=== PATIENT | female | born 1965 | race Hispanic/Latino ===

== ENCOUNTER 2018-09-17 23:13 | Observation (INO) | payer SELFPAY ==
--- NOTE | 2018-09-17 23:38 | RAD ---
SINGLE VIEW OF THE CHEST: 09/17/18 COMPARISON: 10/24/15 HISTORY: Chest pain and left arm pain. FINDINGS: Single view of the chest shows a normal sized cardiomediastinal silhouette. There is no evidence of c onsolidation, mass, or pleural effusion. The bones are unremarkable. IMPRESSION: No evidence of acute cardiopulmonary disease. POS: [facility]
[2018-09-17 23:41] LABS: #Basophils 0.1 thou/uL (0.0-0.2); #Eosinphils 0.1 thou/uL (0.0-0.7); #Lymphocytes 3.9 thou/uL (1.20-3.40); #Monocytes 0.6 thou/uL (0.11-0.59); %Basophils 1.5 % (0.0-1.0); %Eosinophils 1.5 % (0.0-10.0); %Lymphocytes 39.8 % (21.0-51.0); %Monocytes 6.1 % (0.0-10.0); Hemoglobin 17.3 g/dL (12.0-16.0); Mean Corpuscular HGB CONC 33.7 g/dL (32.0-36.0); Mean Corpuscular Hemoglobin 32.3 pg (27.0-31.0); Mean Corpuscular Volume 95.8 fL (78.0-98.0); Mean Platelet Volume 8.5 fL (7.4-10.4); Platelet Count 184 thou/uL (130-400); RBC Distribution Width 11.7 % (11.5-14.5); Red Blood Cell (RBC) Count 5.35 mill/uL (4.20-5.40); White Blood Cell (WBC) Count 9.8 thou/uL (4.8-10.8)
[2018-09-18 00:02] LABS: ALT (SGPT) 18 U/L (8-55); AST (SGOT) 16 U/L (5-34); Albumin 3.8 g/dL (3.5-5.0); Alkaline Phosphatase 101 U/L (40-150); Anion Gap 11 mmol/L (10-20); BUN (Urea Nitrogen) 15 mg/dL (9.8-20.1); Bilirubin, Total 0.5 mg/dL (0.2-1.2); CK (CPK) 34 U/L (29-168); Calc. Creatinine Clearance 0 mL/min (70-130); Calcium 9.5 mg/dL (7.8-10.44); Carbon Dioxide 29 mmol/L (22-29); Chloride 103 mmol/L (98-107); Estimated GFR-MDRD 71; Globulin 3.1 g/dL (2.4-3.5); Glucose 126 mg/dL (70-105); Lipase 22 U/L (8-78); Potassium 4.1 mmol/L (3.5-5.1); Protein, Total 6.9 g/dL (6.0-8.3); Sodium 139 mmol/L (136-145)
[2018-09-18] MEDS ORDERED: Morphine 4 MG/ML VIAL ONE (01:08)
[2018-09-18] MEDS ORDERED: Nitroglycerin 2% Ointment 1 INCH/1 GM Packet ONE (01:08)
--- NOTE | 2018-09-18 01:16 | PDOC.FPRHP ---
- History of Present Illness Chief Complaint: Chest pain History of Present Illness: Mrs. Rivera presents to the ED with a one week history of chest pain She reports she has had these kind of episodes in the past. 2 weeks ago she was treated with abx for bronchitis. and this past week she has had a stabbing sensation in her left upper chest that is worse with deep inspiration. She denies SOB or PISANO, palpitations, headache, swelling or visual changes. She reports she becomes very fatigued and her legs become painful when she walks long distances. The last time she was admitted for this it was thought to be unlikely cardiac in nature. she was given medications and recommendations on follow up but did not follow through with any of these. ED Course: CBC, CMP, trop, DDimer, lipase, CXR, EKG 1 inch nitro, 4 mg morphine, ASA - Allergies/Adverse Reactions Allergies Allergy/AdvReac Type Severity Reaction Status Date / Time No Known Allergies Allergy Verified 10/24/15 20:52 - Home Medications Medication Instructions Recorded Confirmed Type Amlodipine [Norvasc] 2.5 mg PO DAILY #0 tab 10/25/15 Rx Aspirin [Aspirin EC] 81 mg PO DAILY #0 tablet. 10/25/15 Rx Azithromycin [Zithromax] 500 mg PO DAILY #3 tab 10/25/15 Rx Nitroglycerin [Nitrostat] 0.4 mg PO Q5MIN PRN #0 tab 10/25/15 Rx predniSONE 20 mg PO BID #0 tab 10/25/15 Rx - History PMHx: HTN, obesity PSHx: Salphingectomy, tonsillectomy, cholecystectomy, CSection FHx: none Social: 60 pack year hx, no alcohol or drugs - Review of Systems General: denies: fever/chills, weight/appetite/sleep changes Eyes: denies: eye pain, vision changes ENT: denies: nasal congestion Respiratory: reports: exercise intolerance. denies: cough, congestion, shortness of breath Cardiovascular: reports: chest pain. denies: palpitation, edema, orthopnea Gastrointestinal: reports: constipation. denies: nausea, vomiting, diarrhea Genitourinary: denies: incontinence, dysuria Skin: denies: rashes Musculoskeletal: denies: pain, tenderness Neurological: denies: syncope, weakness - Vital signs BP: 188/99 HR: 64 RR: 18 Tmax: 97.6 Pox: 95% on RA Wt: 120kg - Physical Exam Constitutional: NAD, awake, alert and oriented HEENT: normocephalic and atraumatic, grossly normal vision, grossly normal hearing Neck: trachea midline, no thyromegaly Chest: other (tender to palpation) Heart: RRR, normal S1/S2 Lungs: CTAB, no respiratory distress, other (poor air movement) Abdomen: soft, non-tender Musculoskeletal: normal structure, normal tone Neurological: no focal deficit, CN II-XII intact Skin: no rash/lesions, good turgor Heme/Lymphatic: no unusual bruising or bleeding Psychiatric: other (poor insight) FMR H&P: Results - Labs Result Diagrams: 09/17/18 23:31 09/17/18 23:31 Lab results: WBC 9.8 thou/uL (4.8-10.8) 09/17/18 23:31 Hgb 17.3 g/dL (12.0-16.0) H 09/17/18 23:31 Hct 51.2 % (36.0-47.0) H 09/17/18 23:31 MCV 95.8 fL (78.0-98.0) 09/17/18 23:31 Plt Count 184 thou/uL (130-400) 09/17/18 23:31 Neutrophils % 51.0 % (42.0-75.0) 09/17/18 23:31 Sodium 139 mmol/L (136-145) 09/17/18 23:31 Potassium 4.1 mmol/L (3.5-5.1) 09/17/18 23:31 Chloride 103 mmol/L (98-107) 09/17/18 23:31 Carbon Dioxide 29 mmol/L (22-29) 09/17/18 23:31 BUN 15 mg/dL (9.8-20.1) 09/17/18 23:31 Creatinine 0.84 mg/dL (0.6-1.1) 09/17/18 23:31 Glucose 126 mg/dL (70-105) H 09/17/18 23:31 Calcium 9.5 mg/dL (7.8-10.44) 09/17/18 23:31 Total Bilirubin 0.5 mg/dL (0.2-1.2) 09/17/18 23:31 AST 16 U/L (5-34) 09/17/18 23:31 ALT 18 U/L (8-55) 09/17/18 23:31 Alkaline Phosphatase 101 U/L (40-150) 09/17/18 23:31 Creatine Kinase 34 U/L (29-168) 09/17/18 23:31 Serum Total Protein 6.9 g/dL (6.0-8.3) 09/17/18 23:31 Albumin 3.8 g/dL (3.5-5.0) 09/17/18 23:31 Lipase 22 U/L (8-78) 09/17/18 23:31 FMR H&P: A/P - Problem List (1) Atypical chest pain Current Visit: Yes Status: Acute Code(s): R07.89 - OTHER CHEST PAIN (2) Tobacco abuse Current Visit: Yes Status: Acute Code(s): Z72.0 - TOBACCO USE (3) HTN (hypertension) Current Visit: No Status: Acute Code(s): I10 - ESSENTIAL (PRIMARY) HYPERTENSION (4) Obesity Current Visit: No Status: Acute Code(s): E66.9 - OBESITY, UNSPECIFIED (5) Hyperglycemia Current Visit: Yes Status: Acute Code(s): R73.9 - HYPERGLYCEMIA, UNSPECIFIED - Plan Atypical chest pain -Multiple risk factors, ACS r/o indicated -Unlikely ischemic in nature, most likely msk or post infectious inflammation -Troponins neg x1, continue to trend -Stress test in AM, NPO -AM lipids -Nitro, EKG for return of chest pain -Daily ASA HTN -Elevated on admission, previous diagnosis -Begin Lisinopril 10mg -Hydralazine PRN for SBP over 180 -Vitals q4hr Hyperglycemia -No diagnosis of DMII, HbA1c pending Tobacco abuse -Encourage cessation code: full ppx: lovenox Disposition/LOS: observation on telemetry, ACS r/o FMR H&P: Upper Level - Pertinent history 53 yr old female with PMH of untreated HTN, 32 pack yr smoking history, and morbid obesity presents to the ER for chest pain. Reports exertional chest pain for quite some time but usually takes 2 aspirin and pain resolves. Tonight pain described as left sided and stabbing and radiates to her back and left arm. Sod short of breath and taking deep breaths made the chest pain worse initially. Since being in ER, received nitro paste and morphine and pain improved from 6 to 2. She reports treatment with steroids and antibiotics about 2 weeks ago for bronchitis. She does not have insurance so says she does not regularly see a doctor or take blood pressure medications which were prescribed 2 years ago. - Pertinent findings EKG: normal sinus rhythm with 1st degree AV block Gen: no acute distress, lying in bed, morbid obesity Neck: no bruits Heart: RRR, no murmurs, rubs, gallops Lungs: Poor air movement, few inspiratory wheeze in RLL, no rhonchi Abd: protuberant, nontender Ext: Trace edema bilaterally - Plan Date/Time: 09/18/18 0114 I, [Flory Baez], have evaluated this patient and agree with findings/plan as outlined by actuarial internship resident. Pertinent changes/additions are listed here. 53 yr old female presents with chest pain Atypical chest pain r/o ACS -suspected to be pleuritic in nature however significant cardiac risk factors -heart score of 3 for age and risk factors(HTN, obesity, tobacco abuse) -neg trop x 1 and neg EKG, will trend trop -will plan for stress test in AM -risk stratify with FLP, A1c -prn o2 -daily ASA Hypertensive urgency -severe range BP without end organ damage - will start lisinopril -counseled on importance of taking medications tobacco abuse -smoking cessation counseling provided 1st degree AV block -monitor morbid obesity -counseled on importance of weight loss PCP: [facility] in [place], does not see regularly Code: Full DVT ppx: lovenox GI ppx: none
[2018-09-18] MEDS ORDERED: Acetaminophen 325 MG TAB PO PRN (02:11)
[2018-09-18] MEDS ORDERED: hydrALAZINE 20 MG/ML VIAL SLOW IVP PRN (03:00)
[2018-09-18 03:10] LABS: Troponin I Less than 0.010 ng/mL (< 0.028)
[2018-09-18 03:18] LABS: Cardiac Risk 3.1 (Less than 4.5)
[2018-09-18 03:24] LABS: Hemoglobin A1c 5.2 % (4.0-6.0)
[2018-09-18 06:23] LABS: Troponin I Less than 0.010 ng/mL (< 0.028)
[2018-09-18] MEDS ORDERED: Acetaminophen 325 MG TAB ONE (06:45)
[2018-09-18] MEDS ORDERED: Ibuprofen 200 MG TAB ONE (09:31)
--- NOTE | 2018-09-18 10:09 | HP ---
I have reviewed the H and P of Dr. Will Rios and I have discussed the case with him. I agree with his assessment plan. HISTORY OF PRESENT ILLNESS: Ms. Rivera is a 53-year-old female patient, who presents to our ER with atypical chest pain. She has no known history of coronary artery disease and had a Heart Score of 3. Her initial troponin and EKG were normal. She had been admitted for further testing and stress testing as well. PHYSICAL EXAMINATION: VITAL SIGNS: Her blood pressure is 170/110, her heart rate is 64 and regular, respirations 18, and her room air pulse ox is 95%. GENERAL: This is an obese female, in no acute distress. She is awake, alert, and oriented. HEENT: Ear, nose, and throat; no erythema or exudate. NECK: Supple. There is no JVD. CARDIAC: The PMI is in the 5th intercostal space, midclavicular line. No gallop or murmur noted. LUNGS: Breath sounds are distant likely secondary to body habitus, but no rales, rhonchi, or wheezes. No respiratory distress. No use of accessory muscles. ABDOMEN: Flat and soft. No guarding, rebound, or rigidity. EXTREMITIES: Trace edema. NEUROLOGICAL: No focal deficits. LABORATORY DATA: Her initial troponin is less than 0.01 and this is x3. BMP; sodium is 139, potassium is 4.1, chloride 103, bicarb 29, BUN 15, creatinine 0.84, and random glucose 126. A1c is 5.2. IMAGING DATA: EKG shows no acute ischemic changes. ASSESSMENT: Atypical chest pain. PLAN: Admit, stress test. Further workup to depend on results of stress testing. Job ID: [id number]
[2018-09-18] MEDS: Aspirin 81 mg Enteric Coated Tablet PO SCH (16:14)
[2018-09-18] MEDS: Enoxaparin Sodium 40 MG/0.4 ML SYRINGE SC SCH (16:15)
[2018-09-18] MEDS: Lisinopril 10 MG TAB PO SCH (16:15)
[2018-09-18 18:27] VITALS: BMI 42.1
--- NOTE | 2018-09-19 05:56 | PDOC.FM ---
- Subjective Subjective: No events overnight. Patient has no complaints or concerns. Denies chest pain or palpitations, diaphoresis, or LE swelling. - Objective Vital Signs & Weight: Vital Signs (12 hours) Temp Pulse Resp BP BP Pulse Ox 09/19/18 04:35 80 18 164/74 H 09/18/18 18:30 98 F 72 16 152/88 H 96 09/18/18 17:59 68 143/78 H Weight Weight 122.016 kg I&O: 09/17/18 09/18/18 09/19/18 06:59 06:59 06:59 Intake Total 240 Balance 240 Result Diagrams: 09/19/18 10:24 09/17/18 23:31 Phys Exam - Physical Examination Constitutional: NAD HEENT: PERRLA, moist MMs, sclera anicteric Neck: no JVD, supple, full ROM Respiratory: clear to auscultation bilateral Cardiovascular: RRR, no significant murmur, no rub Gastrointestinal: soft, non-tender, no distention, positive bowel sounds Musculoskeletal: no edema Neurological: non-focal, moves all 4 limbs Psychiatric: normal affect, A&O x 3 Skin: no rash Dx/Plan (1) Atypical chest pain Code(s): R07.89 - OTHER CHEST PAIN Status: Acute (2) Hyperglycemia Code(s): R73.9 - HYPERGLYCEMIA, UNSPECIFIED Status: Acute (3) Tobacco abuse Code(s): Z72.0 - TOBACCO USE Status: Acute (4) Acute bronchitis Code(s): J20.9 - ACUTE BRONCHITIS, UNSPECIFIED Status: Acute (5) Chest pain Code(s): R07.9 - CHEST PAIN, UNSPECIFIED Status: Acute (6) HTN (hypertension) Code(s): I10 - ESSENTIAL (PRIMARY) HYPERTENSION Status: Acute (7) Obesity Code(s): E66.9 - OBESITY, UNSPECIFIED Status: Acute - Plan Plan: 53 yr old female presents with chest pain Atypical chest pain r/o ACS - suspected to be pleuritic in nature however significant cardiac risk factors - heart score of 3 for age and risk factors(HTN, obesity, tobacco abuse) - neg trop x 3 and neg EKG - FLP: total cholesterol 201, LDL 123, HDL 65 - Active portion of stress performed yesterday, will do resting stress today - daily ASA - Patient ASCVD risk is 8% - discussed adding statin but patient states she would like to try lifestyle modifications of diet and exercise at this time. She states she will f/u with her PCP to recheck her lipid levels and overall health. Hypertensive urgency - severe range BP without end organ damage - Will start lisinopril; BP still ranging 143-188/70-91; patient not given lisinopril on 09/18 due to being in procedure all afternoon. - counseled on importance of taking medications Tobacco abuse - smoking cessation counseling provided 1st degree AV block - monitor Morbid obesity - counseled on importance of weight loss PCP: [facility] in [place], does not see regularly Code: Full DVT ppx: lovenox GI ppx: none Dispo: likely discharge today after stress Addendum - Attending - Attending Attestation Date/Time: 09/19/18 1610 I personally evaluated the patient and discussed the management with Dr. Rodriguez I agree with the History, Examination, Assessment and Plan documented above with any addition or exceptions noted below.Stress testing wnl discussed multiple risk factors for ASHD and strongly encouraged tobacco cessation . Polycythemia noted repeat lab improved continue to f/u outpatient. OK dismiss with ACEI and consider statin patient reluctant prefer lifestyle modification for risk reduction first and is precontemplative regard tobacco cessation she has been counseled risks of continued tobacco use.
[2018-09-19] MEDS: Lisinopril 10 MG TAB PO SCH (07:51)
[2018-09-19] MEDS: Aspirin 81 mg Enteric Coated Tablet PO SCH (07:51)
[2018-09-19] MEDS: Enoxaparin Sodium 40 MG/0.4 ML SYRINGE SC SCH (07:52)
[2018-09-19 10:37] LABS: #Basophils 0.1 thou/uL (0.0-0.2); #Eosinphils 0.1 thou/uL (0.0-0.7); #Lymphocytes 2.5 thou/uL (1.20-3.40); #Monocytes 0.5 thou/uL (0.11-0.59); #Neutrophils 4.7 thou/uL (1.40-6.50); %Eosinophils 1.2 % (0.0-10.0); %Lymphocytes 31.9 % (21.0-51.0); %Monocytes 5.8 % (0.0-10.0); Hemoglobin 16.4 g/dL (12.0-16.0); Mean Corpuscular HGB CONC 32.8 g/dL (32.0-36.0); Mean Corpuscular Hemoglobin 31.8 pg (27.0-31.0); Mean Corpuscular Volume 96.9 fL (78.0-98.0); Mean Platelet Volume 8.2 fL (7.4-10.4); Platelet Count 163 thou/uL (130-400); RBC Distribution Width 11.7 % (11.5-14.5); Red Blood Cell (RBC) Count 5.14 mill/uL (4.20-5.40); White Blood Cell (WBC) Count 7.8 thou/uL (4.8-10.8)
--- NOTE | 2018-09-19 11:56 | NM ---
RADIONUCLIDE STRESS REST MYOCARDIAL PERFUSION SCAN WITH CT ATTENUATION CORRECTION AND SPECT IMAGING LEFT VENTRICULAR WALL MOTION EVALUATION AND EJECTION FRACTION: HISTORY: Chest pain. FINDINGS: There is homogeneous uptake of radiotracer throughout the left ventricular myocardium on both the str ess and rest images. No focal perfusion defect or reversibility. QGS analysis of gated SPECT images shows some dyskinesis of the distal margin of the lateral wall. Ejection fraction is calculated at 57%. IMPRESSION: Normal myocardial perfusion scan showing no evidence of ischemia. Normal left ventricular ejection f raction. POS: [facility]
[2018-09-19 11:59] VITALS: BP 159/72; TEMP 98.6
--- NOTE | 2018-09-19 14:57 | STRESS ---
Acquisition Time: 2018-09-18 11:45:42 Total Exercise Time: 00:04:00 Test Indications: CHEST PAIN Medications: Protocol: ADENOSINE Max HR: 110 BPM 66% of Pred: 166 BPM Max BP: 146/084 mmHG Max Work Load: 1.0 METS RESTING ECG: NORMAL SINUS RHYTHM AT 69 BPM SYMPTOMS: NONE NORMAL BLOOD PRESSURE RESPONSE ECTOPY: RARE PVCs ECG RESPONSE: NO SIGNIFICANT CHANGES INTERPRETATION: NEGATIVE ECG/AWAIT NUCLEAR IMAGES FOR DEFINITIVE DIAGNOSIS Confirmed by CYDNEY DILLON ELLEN ([id number]) on 09/19/2018 2:57:22 PM Referred By: CYDNEY DILLON Confirmed By:SANGITA DILLON PA-C
--- NOTE | 2018-09-19 18:30 | EKG ---
Test Reason : Blood Pressure : / mmHG Vent. Rate : 072 BPM Atrial Rate : 072 BPM P-R Int : 220 ms QRS Dur : 094 ms QT Int : 426 ms P-R-T Axes : 072 045 056 degrees QTc Int : 466 ms Sinus rhythm with 1st degree A-V block with Premature atrial complexes with Abberant conduction Otherwise normal ECG Confirmed by MARK VITAL DO ([id number]), photograph editor ARIANNA TOWNSEND ([id number]) on 09/19/2018 6:29:39 PM Referred By: Confirmed By:MARK VITAL DO
--- NOTE | 2018-09-21 08:27 | DIS ---
DATE OF ADMISSION: 09/18/2018 DATE OF DISCHARGE: 09/19/2018 RESIDENT: Kianna Rodriguez MD. ADMITTING ATTENDING: Tom Velasquez MD. DISCHARGE ATTENDING: Dr. Ronal Flores MD. CONSULTS: None. PROCEDURES: Stress test. PRIMARY DIAGNOSES: 1. Atypical chest pain. 2. Hypertensive urgency. SECONDARY DIAGNOSES: 1. Tobacco abuse. 2. First-degree atrioventricular block. 3. Morbid obesity. DISCHARGE MEDICATIONS: 1. Aspirin 81 mg oral daily. 2. Lisinopril 10 mg oral daily. Discontinued medications: None. HISTORY OF PRESENT ILLNESS/HOSPITAL COURSE: This is a 53-year-old female, who presented to the emergency department with 1-week history of chest pain. The patient reports that she had, had this kind of episode in the past. The patient was treated for bronchitis 2 weeks ago. Over the past week, the patient had a stabbing sensation in her left upper chest that was worse with deep inspiration. The patient reports feeling fatigued and her legs becoming painful when she walks long distances. The patient denied shortness of breath, dyspnea on exertion, palpitations, headache, swelling, or vision changes at this time. The patient had negative troponins x3. Chest x-ray was normal. EKG showed a first-degree AV block. The patient was given topical nitro, morphine, and aspirin in the emergency department. The patient has a history of smoking and was counseled on smoking cessation. The patient underwent a nuclear medicine stress test that showed a normal ejection fraction of 57% as well as no evidence of ischemia. The patient had an ASCVD risk of 8% and was counseled on starting a statin. The patient declined wanting to start a statin at this time, stating that she would like to pursue lifestyle modifications of diet and exercise first. The patient was started on daily aspirin as well as lisinopril. On admission, the patient had elevated blood pressures on day of discharge. Blood pressures remained elevated as she only had one dose of lisinopril thus far. The patient endorsed that she will continue to take lisinopril and check her blood pressure daily and follow up with her PCP within 3 to 5 days. Fasting lipid panel showed total cholesterol of 201, LDL 123, and HDL 65. Also discussed patients elevated Hgb and discussed that we will follow this up outpatient. DISPOSITION: Stable. DISCHARGE INSTRUCTIONS: 1. Location: Home. 2. Activity: Ad paulina. 3. Diet: Regular. 4. Followup: Follow up with PCP within 3 to 5 days. Job ID: [id number] [facility]
== END 2018-09-19 13:16 | disposition home or self-care (01) ==
LOC: ERS 23:13 → ERHOLD 09-18 01:34 → 2SW 09-18 17:10
PROVIDERS: ADMIT Family Medicine; ATTEND Family Medicine
DX: R07.89 Other chest pain (principal); I16.0 Hypertensive urgency; I10 Essential (primary) hypertension; F17.210 Nicotine dependence, cigarettes, uncomplicated; R73.9 Hyperglycemia, unspecified; J20.9 Acute bronchitis, unspecified; I44.0 Atrioventricular block, first degree; E66.01 Morbid (severe) obesity due to excess calories; Z79.82 Long term (current) use of aspirin; Z79.899 Other long term (current) drug therapy; Z68.41 Body mass index [BMI] 40.0-44.9, adult
CPT/HCPCS: 36415; 71045; 78452; 80053; 80061; 82550; 83036; 83690; 84484; 85025; 85379; 93005; 93017; 94760; 96374; A9500; G0378; J0153; J1650; J2270